=== PATIENT | female | born 1975 | race Two or more races ===

== ENCOUNTER 2018-10-12 10:51 | Emergency (ER) | payer OTHER ==
[~2018-10-12] VITALS: Ht 160 cm; Wt 83.9 kg
[2018-10-12] MEDS ORDERED: UNOBMED (10:59)
[2018-10-12 11:00] VITALS: BP 106/73
--- NOTE | 2018-10-12 11:00 | NUR ---
ED Nurse Note: A/Ox4. Pt was sent by Dr. Vipul Pineda's office due to SI. Pt denies SI/HI and no plan at this time. Pt reports that she does not know why she was sent here. All belongings in psych #1.
--- NOTE | 2018-10-12 11:20 | NUR ---
ED Nurse Note: Contacted pt's MD's office for list of home medications. Waiting for them to fax it to us. No s/s of distress. Pt is resting in bed.
--- NOTE | 2018-10-12 11:37 | NUR ---
ED Nurse Note: sitter at the bedside.
[2018-10-12 12:36] LABS: BASOPHILS % (AUTO) 1.4 % (0.0-2.0); EOSINOPHILS % (AUTO) 3.2 % (0.0-3.0); HEMATOCRIT 45.8 % (37.0-47.0); HEMOGLOBIN 15.6 G/DL (12.0-16.0); LYMPHOCYTES % (AUTO) 29.2 % (20.0-45.0); MEAN CORPUSCULAR VOLUME 83 FL (80-99); MONOCYTES % (AUTO) 11.3 % (1.0-10.0); NEUTROPHILS % (AUTO) 54.9 % (45.0-75.0); PLATELET COUNT 261 K/UL (150-450); RED BLOOD COUNT 5.51 M/UL (4.20-5.40); RED CELL DISTRIBUTION WIDTH 12.1 % (11.6-14.8); WHITE BLOOD COUNT 3.6 K/UL (4.8-10.8)
[2018-10-12 12:47] LABS: ANION GAP 8 mmol/L (5-15); BLOOD UREA NITROGEN 14 mg/dL (7-18); CALCIUM 9.3 MG/DL (8.5-10.1); CARBON DIOXIDE 29 MMOL/L (21-32); CHLORIDE 103 MMOL/L (98-107); POTASSIUM 3.7 MMOL/L (3.5-5.1); SODIUM 139 MMOL/L (136-145)
[2018-10-12 12:52] LABS: ALANINE AMINOTRANSFERASE 34 U/L (12-78); ALKALINE PHOSPHATASE 80 U/L (46-116); ASPARTATE AMINO TRANSFERASE 24 U/L (15-37); BILIRUBIN,TOTAL 0.3 MG/DL (0.2-1.0)
--- NOTE | 2018-10-12 13:45 | NUR ---
ED Nurse Note: Pt denies SI/HI. Pt denies having any suicidal idealation today and she does not have any plans. Dr. Frank at the bedside.
[2018-10-12 14:10] VITALS: BP 110/78
--- NOTE | 2018-10-12 14:10 | NUR ---
ED Nurse Note: Patient is being discharged from Dr. Wylie Awake, alert and oriented x4. Denies any SI/HI. After care instructions. Patient verbalized understanding of After care instructions. Patient signed patient consent in the medical record for patient destination upon discharge. All medical devices such as IV and ID band were removed. Patient ambulated out with all personal belongings with steady gait.
--- NOTE | 2018-10-12 15:48 | Emergency Room Report ---
History of Present Illness General Chief Complaint: Suicidal Source: Patient Present Illness HPI 42-year-old female presents ED for evaluation. Patient was sent here by her PMD. PMD states that patient is displaying suicidal ideation. PMD states that patient endorsed SI today. Was tearful and stated that she heard voices that told her to hurt herself. PMD states he received this information via piano and organ refinisher at his clinic. Patient today denies any SI. States that a few weeks ago she did feel sad and heard voices. Did not have a plan. Denies SI or hearing voices at this time. States she takes Cymbalta. States she is compliant with her medications. Denies drug use. States that she was feeling upset a few weeks ago because of her pain. Has chronic pain and is seeing pain management. No other aggravating relieving factors. Denies any other associated symptoms Allergies: Coded Allergies: No Known Allergies (Unverified , 10/12/18) Patient History Past Medical History: none Past Surgical History: none Pertinent Family History: none Social History: Denies: smoking, alcohol use, drug use Last Menstrual Period: 10/09/18 Now: No Immunizations: UTD Reviewed Nursing Documentation: PMH: Agreed; PSxH: Agreed Nursing Documentation-PMH Past Medical History: No History, Except For Hx Cardiac Problems: No - HYPOTHYROIDISM Review of Systems All Other Systems: negative except mentioned in HPI Physical Exam Vital Signs Date Time Temp Pulse Resp B/P (MAP) Pulse Ox O2 Delivery O2 Flow Rate FiO2 10/12/18 10:54 98.2 70 16 106/73 99 Room Air Sp02 EP Interpretation: reviewed, normal General Appearance: no apparent distress, alert, GCS 15, non-toxic Head: normocephalic, atraumatic Eyes: bilateral eye normal inspection, bilateral eye PERRL ENT: hearing grossly normal, normal pharynx, no angioedema, normal voice Neck: full range of motion, supple/symm/no masses Respiratory: chest non-tender, lungs clear, normal breath sounds, speaking full sentences Cardiovascular #1: regular rate, rhythm, no edema Cardiovascular #2: 2+ carotid (R), 2+ carotid (L), 2+ radial (R), 2+ radial (L) , 2+ dorsalis pedis (R), 2+ dorsalis pedis (L) Gastrointestinal: normal bowel sounds, non tender, soft, non-distended, no guarding, no rebound Rectal: deferred Genitourinary: normal inspection, no CVA tenderness Musculoskeletal: back normal, gait/station normal, normal range of motion, non- tender Neurologic: alert, oriented x3, responsive, motor strength/tone normal, sensory intact, speech normal Psychiatric: judgement/insight normal, memory normal, no suicidal/homicidal ideation, no delusions, depressed affect, anxious Reflexes: 3+ bicep (R), 3+ bicep (L), 3+ tricep (R), 3+ tricep (L), 3+ knee (R) , 3+ knee (L) Skin: normal color, no rash, warm/dry, well hydrated Lymphatic: no adenopathy Medical Decision Making Diagnostic Impression: Primary Impression: Depression Qualified Codes: F32.9 - Major depressive disorder, single episode, unspecified ER Course Hospital Course 42-year-old female referred from PMD office for suicidal ideation Differential diagnoses include: ETOH, psychosis, substance abuse Clinical course Patient placed on stretcher. After initial history physical exam reveals a male in no acute distress. Patient appears anxious but is maintaining good eye contact. Answering questions appropriately. Not tearful. Not experiencing delusions at this time Labs-electrolytes normal, aspirin/Tylenol levels normal, EtOH level normal, U. tox negative I spoke to PMD who states that with piano and organ refinisher patient stated that she wanted to hurt herself today. We spoke to patient with piano and organ refinisher as well. Patient states that she told the PMD that she was experiencing these symptoms a few weeks ago but not today. Based on my assessment I do not believe patient is immediately danger to herself or others. Patient is not on a hold, nor does she have a plan. Patient would benefit from outpatient psychiatric evaluation, but does not qualify for emergent psychiatric evaluation Patient states she has her prescription of Cymbalta. I will provide her with the to health referrals i. I feel this is a highly complex case requiring extensive working including EKG/Rhythm strip, Xray/CT/US, Blood/urine lab work, repeat exams while in ED, and administration of strong opiates/narcotics for pain control, admission to hospital or close patient follow up. Diagnosis - depression Stable and discharged to home. Followup with PMD/psychiatrist. Return to ED if symptoms recur or worsen Labs Test 10/12/18 11:40 White Blood Count 3.6 K/UL (4.8-10.8) Red Blood Count 5.51 M/UL (4.20-5.40) Hemoglobin 15.6 G/DL (12.0-16.0) Hematocrit 45.8 % (37.0-47.0) Mean Corpuscular Volume 83 FL (80-99) Mean Corpuscular Hemoglobin 28.2 PG (27.0-31.0) Mean Corpuscular Hemoglobin Concent 34.0 G/DL (32.0-36.0) Red Cell Distribution Width 12.1 % (11.6-14.8) Platelet Count 261 K/UL (150-450) Mean Platelet Volume 9.0 FL (6.5-10.1) Neutrophils (%) (Auto) 54.9 % (45.0-75.0) Lymphocytes (%) (Auto) 29.2 % (20.0-45.0) Monocytes (%) (Auto) 11.3 % (1.0-10.0) Eosinophils (%) (Auto) 3.2 % (0.0-3.0) Basophils (%) (Auto) 1.4 % (0.0-2.0) Urine HCG, Qualitative Negative (NEGATIVE) Sodium Level 139 MMOL/L (136-145) Potassium Level 3.7 MMOL/L (3.5-5.1) Chloride Level 103 MMOL/L (98-107) Carbon Dioxide Level 29 MMOL/L (21-32) Anion Gap 8 mmol/L (5-15) Blood Urea Nitrogen 14 mg/dL (7-18) Creatinine 1.0 MG/DL (0.55-1.30) Estimat Glomerular Filtration Rate > 60 mL/min (>60) Glucose Level 92 MG/DL (74-106) Calcium Level 9.3 MG/DL (8.5-10.1) Total Bilirubin 0.3 MG/DL (0.2-1.0) Aspartate Amino Transf (AST/SGOT) 24 U/L (15-37) Alanine Aminotransferase (ALT/SGPT) 34 U/L (12-78) Alkaline Phosphatase 80 U/L (46-116) Total Protein 7.9 G/DL (6.4-8.2) Albumin 4.0 G/DL (3.4-5.0) Globulin 3.9 g/dL Albumin/Globulin Ratio 1.0 (1.0-2.7) Salicylates Level 0.9 ug/mL (2.8-20) Urine Opiates Screen Negative (NEGATIVE) Acetaminophen Level < 2 MCG/ML (10-30) Urine Barbiturates Screen Negative (NEGATIVE) Phencyclidine (PCP) Screen Negative (NEGATIVE) Urine Amphetamines Screen Negative (NEGATIVE) Urine Benzodiazepines Screen Negative (NEGATIVE) Urine Cocaine Screen Negative (NEGATIVE) Urine Marijuana (THC) Screen Negative (NEGATIVE) Serum Alcohol < 3 mg/dL Last Vital Signs Date Time Temp Pulse Resp B/P (MAP) Pulse Ox O2 Delivery O2 Flow Rate FiO2 10/12/18 14:10 98.2 78 16 110/78 99 Room Air Status: improved Disposition: HOME, SELF-CARE Condition: Stable Referrals: NON PHYSICIAN (PCP) [facility] Psych ER - Peds ER - [facility] Intake Hotline - Patient Instructions: Depression, Adult, [id number] Jimmy Adan MD Oct 12, 2018 15:48
== END 2018-10-12 14:10 | disposition home or self-care (01) ==
LOC: EMR 12:21
DX: F32.9 Major depressive disorder, single episode, unspecified (principal); R45.851 Suicidal ideations; E03.9 Hypothyroidism, unspecified
CPT/HCPCS: 36415; 80053; 80307; 81025; 85025; 99284; G0480; 80329